=== PATIENT | male | born 1955 | race Caucasian/White ===

== ENCOUNTER 2018-06-25 12:15 | Emergency (ER) | payer OTHER ==
[~2018-06-25] VITALS: Ht 185.4 cm; Wt 110.7 kg
[~2018-06-25 12:15] MED LIST: CIPR500 PO; METR500 PO; OXYACE7.5T PO
[2018-06-25] MEDS ORDERED: WARF5 PO (12:30)
== END 2018-06-25 14:18 | disposition home or self-care (01) ==
LOC: ER 12:15
DX: M25.562 Pain in left knee (principal); Z88.5 Allergy status to narcotic agent; Z79.01 Long term (current) use of anticoagulants; V89.9XXA Person injured in unspecified vehicle accident, initial encounter
CPT/HCPCS: 73564; 99283-25

== ENCOUNTER 2019-11-04 00:11 | Day surgery (SDC) | payer OTHER ==
[~2019-11-04 00:11] MED LIST changes: +WARF5 PO
== END 2019-11-04 23:13 | disposition home or self-care (01) ==
LOC: ATC 00:11
DX: J45.50 Severe persistent asthma, uncomplicated (principal); G47.33 Obstructive sleep apnea (adult) (pediatric)
CPT/HCPCS: J2357

== ENCOUNTER 2020-02-19 23:41 | Emergency (ER) | payer OTHER ==
[~2020-02-19] VITALS: Ht 185.4 cm; Wt 161.9 kg
[2020-02-19] MEDS ORDERED: ELIQUIS2.5 MG (23:58)
[2020-02-20 02:53] LABS: BASOPHILS ABSOLUTE AUTO 0.02 K/mm3 (0.00-0.23); BASOPHILS PERCENT AUTO 0 % (0-2); EOSINOPHILS ABSOLUTE AUTO 0.02 K/mm3 (0.00-0.68); EOSINOPHILS PERCENT AUTO 0 % (0-6); Hematocrit 44.6 % (37.0-53.0); Hemoglobin 14.3 g/dL (13.5-17.5); IMMATURE GRAN ABSOLUTE AUTO 0.03 K/mm3 (0.00-0.10); IMMATURE GRAN PERCENT AUTO 0 % (0-1); LYMPHOCYTES ABSOLUTE AUTO 0.93 K/mm3 (0.84-5.20); LYMPHOCYTES PERCENT AUTO 7 % (21-46); MONOCYTES ABSOLUTE AUTO 0.67 K/mm3 (0.16-1.47); MONOCYTES PERCENT AUTO 5 % (4-13); Mean Corpuscular HGB 29.4 pg (26.0-34.0); Mean Corpuscular HGB Conc 32.1 g/dL (31.5-36.5); Mean Corpuscular Volume 92 fL (80-100); Mean Platelet Volume 9.7 fL (9.1-12.4); NEUTROPHILS ABSOLUTE AUTO 11.09 K/mm3 (1.96-9.15); NEUTROPHILS PERCENT AUTO 87 % (41-73); Platelet Count 206 K/mm3 (150-400); RDW Coefficient Variation 13.3 % (11.7-14.2); RDW Standard Deviation 44.9 fL (35.1-46.3); Red Blood Cell Count 4.86 M/mm3 (4.30-5.90); White Blood Cell Count 12.76 K/mm3 (4.00-11.30)
[2020-02-20 03:09] LABS: Alanine Aminotransfer (ALT/SGP 41 U/L (12-78); Albumin, Blood 3.7 g/dL (3.4-5.0); Alk Phos 64 U/L (50-136); Anion Gap 4 mmol/L (6-16); Aspartate Aminotrans (AST/SGOT 25 U/L (12-37); Bilirubin, Total 0.5 mg/dL (0.1-1.0); Blood Urea Nitrogen 27 mg/dL (8-24); CO2, Blood 26 mmol/L (21-32); Calcium, Blood 8.7 mg/dL (8.5-10.1); Chloride, Blood 110 mmol/L (98-108); Globulin, Blood 3.7 g/dL (2.2-4.0); Glomerular Filtration Rate >60 (60-); Glucose, Blood 115 mg/dL (70-99); International Normalized Ratio 0.99; Potassium, Blood 3.9 mmol/L (3.5-5.5); Prothrombin Time Results 10.6 Sec (9.7-11.5); Sodium, Blood 140 mmol/L (136-145); Total Protein, Blood 7.4 g/dL (6.4-8.2)
== END 2020-02-20 04:07 | disposition short-term general hospital (02) ==
LOC: ER 23:41
PROVIDERS: Emergency Medicine
DX: S02.2XXA Fracture of nasal bones, initial encounter for closed fracture (principal); S05.32XA Ocular laceration without prolapse or loss of intraocular tissue, left eye, initial encounter; Z20.828 Contact with and (suspected) exposure to other viral communicable diseases; Z23 Encounter for immunization; Z88.5 Allergy status to narcotic agent; Y04.2XXA Assault by strike against or bumped into by another person, initial encounter
CPT/HCPCS: 70450; 70486; 73140; 80053; 85025; 85610; 90471; 90714; 96374; 96375; 96376; 99285-25; J2405; J3010; U0002

== ENCOUNTER 2021-09-23 06:02 | Emergency (ER) | payer OTHER ==
[~2021-09-23] VITALS: Ht 185.4 cm; Wt 163.3 kg
[~2021-09-23 06:02] MED LIST changes: +ELIQUIS2.5 MG
== END 2021-09-23 07:51 | disposition home or self-care (01) ==
LOC: ER 06:02
DX: U07.1 COVID-19 (principal); J44.9 Chronic obstructive pulmonary disease, unspecified; E66.01 Morbid (severe) obesity due to excess calories; Z68.42 Body mass index [BMI] 45.0-49.9, adult; Z88.5 Allergy status to narcotic agent
CPT/HCPCS: 99283